=== PATIENT | female | born 1995 | race Caucasian/White ===

== ENCOUNTER 2020-12-04 00:01 | Inpatient (IN) | payer OTHER ==
[~2020-12-04] VITALS: Ht 172.7 cm; Wt 80.3 kg
[2020-12-04 00:46] LABS: HCT 33.3 % (37.0-47.0); HGB 11.4 g/dl (12.5-16.0); MCH 31.7 pg (25.0-31.0); MCHC 34.2 g/dL (32.0-36.0); MCV 92.5 fL (78.0-100.0); MPV 9.6 fL (6.0-9.5); RBC 3.6 M/uL (4.20-5.40); RDW 14.6 % (11.5-14.0); WBC 8.9 K/uL (4.0-10.5)
[2020-12-04 00:47] LABS: BILIRUBIN NEGATIVE (NEGATIVE); BLOOD NEGATIVE Ery/uL (NEGATIVE); CLARITY CLEAR (CLEAR); COLOR YELLOW (YELLOW); GLUCOSE (U) NORMAL (NORMAL); LEUKOCYTES TRACE Leu/uL (NEGATIVE); NITRITE NEGATIVE (NEGATIVE); PROTEIN TRACE (LOW) mg/dL (NEGATIVE); SPECIFIC GRAVITY >=1.030 (1.001-1.030); UROBILINOGEN 0.2 mg/dL (0.2-1.0)
[2020-12-04 00:53] LABS: AMORPHOUS URATES CRYSTALS TRACE; BACTERIA TRACE; MUCOUS MODERATE; SQUAMOUS EPITHELIAL CELLS RARE; URINARY RBC RARE
[2020-12-04 01:14] LABS: ALBUMIN 2.8 g/dL (3.4-5.0); BILIRUBIN - TOTAL 0.2 mg/dL (0.2-1.0); BUN/CREAT RATIO (CALC) 10.1 RATIO; CREATININE 0.69 mg/dL (0.51-0.95); GLOBULIN (CALCULATION) 3.6 g/dL; POTASSIUM 3.9 mmol/L (3.5-5.1); TOTAL PROTEIN 6.4 g/dL (6.4-8.2)
[2020-12-05 06:14] LABS: HCT 29.4 % (37.0-47.0); MCH 31.4 pg (25.0-31.0); MCV 92.5 fL (78.0-100.0); MPV 10.3 fL (6.0-9.5); RBC 3.18 M/uL (4.20-5.40); RDW 14.5 % (11.5-14.0); WBC 11.4 K/uL (4.0-10.5)
[2020-12-05] MEDS ORDERED: PRENATAL FORMU1 EACH PO (12:59)
[2020-12-05] MEDS ORDERED: IBUPROFEN800 M1 PO (12:59)
[2020-12-05] MEDS ORDERED: COLACE100 MG PO (12:59)
[2020-12-05] MEDS ORDERED: IRON325 M1 PO (12:59)
== END 2020-12-05 14:40 | disposition home or self-care (01) | DRG 806 ==
LOC: FOB 00:01
PROVIDERS: ADMIT Obstetrics & Gynecology
PROC: 10E0XZZ Delivery of Products of Conception, External Approach (ICD-10-PCS; principal; 2020-12-04)
PROC: 0KQM0ZZ Repair Perineum Muscle, Open Approach (ICD-10-PCS; 2020-12-04)
PROC: 3E033VJ Introduction of Other Hormone into Peripheral Vein, Percutaneous Approach (ICD-10-PCS; 2020-12-04)
PROC: 10907ZC Drainage of Amniotic Fluid, Therapeutic from Products of Conception, Via Natural or Artificial Opening (ICD-10-PCS; 2020-12-04)
PROC: 3E0P7VZ Introduction of Hormone into Female Reproductive, Via Natural or Artificial Opening (ICD-10-PCS; 2020-12-04)
PROC: 0UQMXZZ Repair Vulva, External Approach (ICD-10-PCS; 2020-12-04)
DX: O99.02 Anemia complicating childbirth (principal); D62 Acute posthemorrhagic anemia; Z37.0 Single live birth; Z3A.39 39 weeks gestation of pregnancy; O99.284 Endocrine, nutritional and metabolic diseases complicating childbirth; E03.9 Hypothyroidism, unspecified; Z20.822 Contact with and (suspected) exposure to COVID-19; O62.3 Precipitate labor; O70.1 Second degree perineal laceration during delivery; O71.82 Other specified trauma to perineum and vulva
CPT/HCPCS: 36415; 80053; 81001; 83615; 84550; J7120; U0002

== ENCOUNTER 2021-05-04 09:00 | Emergency (ER) | payer OTHER ==
[~2021-05-04 09:00] MED LIST: COLACE100 MG PO; IBUPROFEN800 M1 PO; IRON325 M1 PO; PRENATAL FORMU1 EACH PO
[2021-05-04] MEDS ORDERED: NORCO 5-325 TA1 EACH PO (11:12)
[2021-05-04] MEDS ORDERED: NAPROXEN500 MG PO (11:12)
== END 2021-05-04 11:39 | disposition home or self-care (01) ==
LOC: FER 09:00
DX: S52.134A Nondisplaced fracture of neck of right radius, initial encounter for closed fracture (principal); S80.211A Abrasion, right knee, initial encounter; W01.0XXA Fall on same level from slipping, tripping and stumbling without subsequent striking against object, initial encounter; Y92.009 Unspecified place in unspecified non-institutional (private) residence as the place of occurrence of the external cause
CPT/HCPCS: 73030; 73060; 73070; 73110